=== PATIENT | female | born 1965 | race Hispanic/Latino ===

== ENCOUNTER 2017-05-30 07:03 | Emergency (ER) | payer SELFPAY ==
[2017-05-30 07:27] VITALS: BP 155/107
--- NOTE | 2017-05-30 08:29 | XRay Report ---
CHEST TWO VIEWS: 05/30/17 07:03:00 CLINICAL: Shortness of breath. COMPARISON: 03/24/17 FINDINGS: Normal heart and pulmonary vasculature. The lungs are normally expanded and clear. Degenerative change in the spine with multilevel spondylosis. IMPRESSION: No acute cardiopulmonary process.
--- NOTE | 2017-05-30 08:48 | Emergency Department Report ---
HPI - General Chief Complaint: Upper Respiratory Infection Time Seen by Provider: 05/30/17 08:10 - HPI HPI: Patient here reports that she has chest congestion and cough 10 days. She said she's has Asthma and feels like she is having a flare up.. She says she' s been using [id number] cough medicine but it's not helping. She said it' s been getting worse since last night with some short of breath with coughing. Denies any fever or chills. She said she has chest pain with cough in the front of her chest. No pain without coughing. Pain is 5 out of 10 on the cough and and feels sharp. She was treated for asthma in 01/03/2015. Patient says she doesn't have a machine at home and she is out of her asthma medication. ED Past Medical Hx - Past Medical History Previous Medical History?: Yes Hx Asthma: Yes (as a child) - Surgical History Past Surgical History?: Yes Additional Surgical History: tubal ligation - Family History Family history: hypertension - Social History Smoking Status: Current Every Day Smoker Substance Use Type: None Other Social History: single - Medications Home Medications: Home Medications Medication Instructions Recorded Confirmed Last Taken Type Azithromycin [Zithromax Z-RANULFO] 250 mg PO DAILY #6 tablet 01/03/15 Unknown Rx Ibuprofen [Motrin] 800 mg PO Q8HR PRN #30 tablet 10/23/16 Unknown Rx ALBUTEROL Inhaler [ProAir HFA 2 puff IH QID #1 inha 05/30/17 Unknown Rx Inhaler] Amoxicillin/K Clav Tab [Augmentin 1 tab PO Q12HR #20 tab 05/30/17 Unknown Rx 875 mg] guaiFENesin/CODEINE [Robitussin AC] 5 ml PO BID PRN #70 oral.liqd 05/30/17 Unknown Rx methylPREDNISolone [Medrol Dose 4 mg PO QAM #1 tab.ds.pk 05/30/17 Unknown Rx Ranulfo] ED Review of Systems ROS: Stated complaint: CP; RISHABH Other details as noted in HPI Comment: All other systems reviewed and negative Constitutional: no symptoms reported ENT: denies: throat pain, hearing loss, epistaxis, congestion Respiratory: cough, shortness of breath, SOB with exertion, wheezing. denies: orthopnea, SOB at rest, stridor Cardiovascular: chest pain (reports chest pain with cough ). denies: palpitations, dyspnea on exertion, edema, syncope, paroxysmal nocturnal dyspnea Gastrointestinal: denies: abdominal pain, nausea, vomiting, diarrhea, constipation, hematemesis Musculoskeletal: denies: back pain, joint swelling, arthralgia, myalgia Skin: denies: rash Neurological: denies: headache, weakness, numbness, paresthesias, confusion, abnormal gait, vertigo Physical Exam - Physical Exam Vital Signs: Vital Signs 05/30/17 07:16 Temperature 98.5 F Pulse Rate 110 H Respiratory 20 Rate Blood Pressure 155/107 O2 Sat by Pulse 96 Oximetry Vital Signs 05/30/17 05/30/17 05/30/17 07:16 09:18 09:24 Temperature 98.5 F Pulse Rate 110 H Pulse Rate [ 110 H 115 H Bilateral Upper Lobe] Respiratory 20 Rate Respiratory 20 20 Rate [Bilateral Upper Lobe] Blood Pressure 155/107 O2 Sat by Pulse 96 Oximetry 05/30/17 10:33 Temperature Pulse Rate 98 H Pulse Rate [ Bilateral Upper Lobe] Respiratory 18 Rate Respiratory Rate [Bilateral Upper Lobe] Blood Pressure O2 Sat by Pulse 98 Oximetry General: This is a 51-year-old female well-nourished well-developed in no acute distress. Physical Exam: Head: Normocephalic, atraumatic, no abrasion, no bruising and no contusion. Eyes: Biateral pupils equal and reactive to light, bilateral EOM intact.. Bilateral conjunctival and sclera without injection, normal accommodation. Ears: Bilateral EAC without any redness drainage or swelling, Bilateral TM pearly paez, bilateral tragus is normal and nontender. No auricular abnormality. No Mastoid bones tenderness. Nose: Moist, normal mucosa. No maxillary or frontal sinus tenderness. No drainage noted. Mouth: No peritonsillar abscess. No pharyngeal exudate or erythema ,Uvula is midline and oral airways patent. Moist and tongue is normal Neck: Supple,No Cervical adenopathy, full range of motion and no C-spine tenderness. No swelling or tracheal deviation Cardiovascular: S1, S2. This tachycardia at 110, and regular rhythm. No murmur. Capillary refill is less then 3 seconds. Lungs: Patient with dry cough, positive inspiratory and expiratory wheezes in the upper lung gill. Normal work of breathing. No chest wall tenderness MSK: Strength 5/5 in all extremities. No joint deformity or crepitus. Normal inspection. Full range of motion to all extremities Extremities: No clubbing, cyanosis or edema. +2 pulses. No neurovascular compromise Skin: Clean, dry and intact. No rash or lesions. Psych: Normal mood and behavior. ED Course Vital Signs 05/30/17 07:16 Temperature 98.5 F Pulse Rate 110 H Respiratory 20 Rate Blood Pressure 155/107 O2 Sat by Pulse 96 Oximetry Vital Signs 05/30/17 05/30/17 05/30/17 07:16 09:18 09:24 Temperature 98.5 F Pulse Rate 110 H Pulse Rate [ 110 H 115 H Bilateral Upper Lobe] Respiratory 20 Rate Respiratory 20 20 Rate [Bilateral Upper Lobe] Blood Pressure 155/107 O2 Sat by Pulse 96 Oximetry 05/30/17 10:33 Temperature Pulse Rate 98 H Pulse Rate [ Bilateral Upper Lobe] Respiratory 18 Rate Respiratory Rate [Bilateral Upper Lobe] Blood Pressure O2 Sat by Pulse 98 Oximetry - Reevaluation(s) Reevaluation #1: 05/30/17 09:30 Given Xopenex 1.25 mg and Atrovent 0.5 mg nebulized in emergency room along with Deltasone 60 mg by mouth and upon reevaluation her lung sounds are clear. Reevaluation #2: 05/30/17 11:11 Patient stable she was given potassium 40 mEq for potassium is 3.5. After nebulizer treatment of Xopenex and Atrovent along with Deltasone patient now sounds are clear. She reports that she is feeling better 05/30/17 11:13 ED Medical Decision Making - Lab Data Result diagrams: 05/30/17 09:38 05/30/17 09:38 Lab Results 05/30/17 05/30/17 Range/Units 09:38 09:38 WBC 13.0 H (4.5-11.0) K/mm3 RBC 4.88 (3.65-5.03) M/mm3 Hgb 14.4 H (10.1-14.3) gm/dl Hct 44.9 H (30.3-42.9) % MCV 92 (79-97) fl MCH 30 (28-32) pg MCHC 32 (30-34) % RDW 14.3 (13.2-15.2) % Plt Count 313 (140-440) K/mm3 Lymph % (Auto) 26.4 (13.4-35.0) % Desha % (Auto) 8.7 H (0.0-7.3) % Eos % (Auto) 0.3 (0.0-4.3) % Baso % (Auto) 0.8 (0.0-1.8) % Lymph # 3.4 (1.2-5.4) K/mm3 Desha # 1.1 H (0.0-0.8) K/mm3 Eos # 0.0 (0.0-0.4) K/mm3 Baso # 0.1 (0.0-0.1) K/mm3 Seg Neutrophils % 63.8 (40.0-70.0) % Seg Neutrophils # 8.3 H (1.8-7.7) K/mm3 Sodium 142 (137-145) mmol/L Potassium 3.5 L (3.6-5.0) mmol/L Chloride 103.4 (98-107) mmol/L Carbon Dioxide 22 (22-30) mmol/L Anion Gap 20 mmol/L BUN 19 H (7-17) mg/dL Creatinine 0.7 (0.7-1.2) mg/dL Estimated GFR > 60 ml/min BUN/Creatinine Ratio 27 % Glucose 99 (65-100) mg/dL Calcium 9.6 (8.4-10.2) mg/dL - EKG Data -: EKG Interpreted by Me (by attending physician) Rate: tachycardia (110 bpm) - EKG Data When compared to previous EKG there are: no significant change Interpretation: no acute changes - Radiology Data Radiology results: report reviewed Chest x-ray revealed no acute cardiopulmonary findings. - Medical Decision Making ED course: Patient here is status post coughing in, shortness of breath with coughing and chest discomfort with coughing. She was treated with Xopenex 1.25 mg and Atrovent 0.5 mg nebulizer, prednisone 60 mg by mouth and upon reevaluation she says she feels better. Her lung sounds are clear past nebulizer treatment. Patient was found to have low potassium at 3.5 and she was given K-Dur 40 me equivalent 1. She has mild leukocytosis question inflammation from asthma exacerbation. She has Hemoconcentration and her H&H is mildly elevated. Smoking cessation encouraged. Patient is still a smoker and she says she is trying to stop. Lab results and x-ray result discussed the patient. He voiced understanding of discharge instructions and treatment plan. I discussed with her that she will need to follow up with primary care physician and if she does not have one she can follow-[facility] with [facility]. Patient discharged home with prescription for Augmentin, albuterol, Medrol Dosepak and Fenesin with codeine. Critical care attestation.: If time is entered above; I have spent that time in minutes in the direct care of this critically ill patient, excluding procedure time. ED Disposition Clinical Impression: Cough in adult, Hypokalemia, Nicotine abuse, Smoking trying to quit Asthma attack Qualifiers: Asthma severity: mild Asthma persistence: intermittent Qualified Code(s): J45.21 - Mild intermittent asthma with (acute) exacerbation Disposition: TO HOME OR SELFCARE Is pt being admited?: No Does the pt Need Aspirin: No Condition: Stable Instructions: Asthma (ED), Hypokalemia (ED), Acute Cough (ED), How to Stop Smoking (ED) Additional Instructions: Take antibiotic as prescribed Use asthma inhaler every 4 hours for 2 days and then as needed Follow-up via primary care physician in 3 days and if your situation get worse he can return to emergency room. Take all other medication as instructed Do not drive or operate heavy machinery while taking in cough syrup that this medication causes drowsiness Stop smoking as discussed Prescriptions: ALBUTEROL Inhaler [ProAir HFA Inhaler] 2 puff IH QID #1 inha Amoxicillin/K Clav Tab [Augmentin 875 mg] 1 tab PO Q12HR #20 tab guaiFENesin/CODEINE [Robitussin AC] 5 ml PO BID PRN #70 oral.liqd PRN Reason: Cough methylPREDNISolone [Medrol Dose Ranulfo] 4 mg PO QAM #1 tab.ds.pk Referrals: PRIMARY CARE, [Primary Care Provider] - 06/02/17 [facility] [Outside] - 06/02/17 Forms: Work/School Release Form(ED), Accompanied Note
[2017-05-30] MEDS ORDERED: ATROVENT IH ONE (09:09)
[2017-05-30] MEDS ORDERED: DELTASONE PO ONE (09:09)
[2017-05-30] MEDS ORDERED: XOPENEX IH ONE (09:09)
[2017-05-30 09:53] LABS: Basophils % (Auto) 0.8 % (0.0-1.8); Eosinophils % (Auto) 0.3 % (0.0-4.3); Hematocrit 44.9 % (30.3-42.9); Hemoglobin 14.4 gm/dl (10.1-14.3); Mean Corpuscular HGB Conc 32 % (30-34); Mean Corpuscular Hemoglobin 30 pg (28-32); Mean Corpuscular Volume 92 fl (79-97); Platelet Count 313 K/mm3 (140-440); Red Blood Count 4.88 M/mm3 (3.65-5.03); Red Cell Distribution Width 14.3 % (13.2-15.2)
[2017-05-30 10:10] LABS: Anion Gap 20 mmol/L; BUN/Creatinine Ratio 27; Blood Urea Nitrogen 19 mg/dL (7-17); Calcium 9.6 mg/dL (8.4-10.2); Carbon Dioxide 22 mmol/L (22-30); Chloride 103.4 mmol/L (98-107); Glucose 99 mg/dL (65-100); Potassium 3.5 mmol/L (3.6-5.0); Sodium 142 mmol/L (137-145)
[2017-05-30] MEDS ORDERED: K-DUR PO ONE (10:12)
[2017-05-30] MEDS ORDERED: ROCEPHIN IM ONE (11:03)
[2017-05-30] MEDS ORDERED: XYLOCAINE 1% MPF 5 mL INFILTRATI ONE (11:03)
== END 2017-05-30 11:46 | disposition home or self-care (01) ==
LOC: ED 07:03
DX: J45.21 Mild intermittent asthma with (acute) exacerbation (principal); E87.6 Hypokalemia; F17.200 Nicotine dependence, unspecified, uncomplicated
CPT/HCPCS: 36415; 71020; 80048; 85025; 93005; 93010; 94640; 96372; 99284; J0696; J7512